=== PATIENT | female | born 1970 | race Caucasian/White ===

== ENCOUNTER 2024-03-22 10:10 | Emergency (ER) | payer OTHER ==
[2024-03-22 10:17] VITALS: RESP 18; TEMP 99.5; BMI 32.2
[2024-03-22] MEDS ORDERED: MAG HYDROX/AL HYDROX/SIMETH 30 ML UNIT-DOSE CUP ONE ×2 (11:11→11:22)
[2024-03-22] MEDS ORDERED: ACETAMINOPHEN INJECTION 100 ML IVPB ONE ×2 (11:11→11:22)
[2024-03-22] MEDS: MAG HYDROX/AL HYDROX/SIMETH 30 ML UNIT-DOSE CUP PO ONE (11:22)
[2024-03-22] MEDS: SODIUM CHLORIDE 1,000 ML IV STA (11:22)
[2024-03-22] MEDS: FAMOTIDINE 20 MG/50 ML IVPB 20 MG/50 ML MG IVPB ONE (11:23)
[2024-03-22] MEDS: ACETAMINOPHEN 1000 MG/100 ML BAG IVPB ONE (11:23)
[2024-03-22 11:31] LABS: BASO % 0.2 % (0-2.0); EOS % 0.1 % (0-4.5); HEMATOCRIT 40.8 % (32.4-45.2); HEMOGLOBIN 13.6 GM/dL (10.7-15.3); MCH 28.2 pg (25.7-33.7); MCHC 33.4 g/dl (32.0-36.0); MEAN CELL VOLUME 84.4 fl (80-96); MEAN PLT VOLUME 8.4 fl (7.5-11.1); NEUT % 88.7 % (42.8-82.8); PLATELET COUNT 248 10^3/uL (134-434); RBC 4.84 M/mm3 (3.60-5.2); RDW 13.6 % (11.6-15.6); WHITE BLOOD COUNT 14.5 K/mm3 (4.0-10.0)
[2024-03-22 11:48] LABS: POTASSIUM 3.8 mmol/L (3.5-5.1)
[2024-03-22 11:50] LABS: CALCIUM 9.2 mg/dL (8.5-10.1)
[2024-03-22 11:51] LABS: ALBUMIN 4.2 g/dl (3.4-5.0); BLOOD UREA NITROGEN 11.1 mg/dL (7-18); MAGNESIUM 2.1 mg/dL (1.8-2.4)
[2024-03-22 11:53] LABS: CREATININE 0.6 mg/dL (0.55-1.3)
[2024-03-22 11:55] LABS: BILIRUBIN,TOTAL 0.6 mg/dL (0.2-1); TOT PROT 8.1 g/dl (6.4-8.2)
[2024-03-22 13:57] VITALS: BP 125/54; PULSE 84
== END 2024-03-22 14:12 | disposition home or self-care (01) ==
LOC: JER 10:10
PROC: 3E030NZ Introduction of Analgesics, Hypnotics, Sedatives into Peripheral Vein, Open Approach (ICD-10-PCS; principal; 2024-03-22)
PROC: 3E0337Z Introduction of Electrolytic and Water Balance Substance into Peripheral Vein, Percutaneous Approach (ICD-10-PCS; 2024-03-22)
DX: R10.13 Epigastric pain (principal); R11.10 Vomiting, unspecified; Z20.822 Contact with and (suspected) exposure to COVID-19
CPT/HCPCS: 0241U-QW; 36415; 76705-TC; 80053; 83605; 83690; 83735; 84484; 85025; 93005; 93010; 99285-25; J0131